=== PATIENT | male | born 1965 ===

== ENCOUNTER 2024-04-02 16:30 | Emergency (ER) | payer OTHER ==
[2024-04-02 18:06] LABS: BASOPHILS ABSOLUTE AUTO 0.04 K/uL (0.00-0.10); BASOPHILS PERCENT AUTO 0.5 % (0.1-1.3); EOSINOPHILS ABSOLUTE AUTO 0.15 K/uL (0.00-0.40); EOSINOPHILS PERCENT AUTO 1.9 % (0.0-5.4); HEMOGLOBIN 14.3 g/dL (12.9-16.9); IMMATURE GRAN PERCENT AUTO 0.3 % (0.0-0.7); LYMPHOCYTES ABSOLUTE AUTO 2.61 K/uL (0.8-3.3); LYMPHOCYTES PERCENT AUTO 33.7 % (11.4-47.7); MEAN CORPUSCULAR HGB CONC 34.9 g/dL (31.6-35.5); MEAN CORPUSCULAR VOLUME 88.7 fL (81.4-99.0); MONOCYTES ABSOLUTE AUTO 0.58 K/uL (0.20-0.90); MONOCYTES PERCENT AUTO 7.5 % (3.3-12.6); NEUTROPHILS ABSOLUTE AUTO 4.34 K/uL (1.0-7.6); NEUTROPHILS PERCENT AUTO 56.1 % (40.0-78.1); PLATELET COUNT,PLT 249 K/uL (130-375); RED BLOOD CELL COUNT 4.62 M/uL (4.14-5.76); WHITE BLOOD CELL COUNT,WBC 7.7 K/uL (3.2-11.0)
[2024-04-02 18:07] LABS: IMMATURE GRAN ABSOLUTE AUTO 0.02 K/uL (0.00-0.23)
[2024-04-02 18:25] LABS: ANION GAP 11.5 mmol/L (5.0-14.0); CALCIUM 9.2 mg/dL (8.5-10.1); CREATININE 1.2 mg/dL (0.8-1.3); EST CRCL DRUG DOSING (CG) 60.44 mL/min; POTASSIUM,K 4.5 mmol/L (3.6-5.2)
[2024-04-02] MEDS ORDERED: Glucagon,Human Recombinant 1 MG Vial IM PRN (18:33)
[2024-04-02] MEDS ORDERED: 50% Dextrose in Water 50 ML Syringe IVPUSH PRN (18:33)
[2024-04-02] MEDS: Insulin Regular, Human 100 Units/ML 3 ML Vial SUBCUT ONE (19:10)
== END 2024-04-02 21:47 | disposition home or self-care (01) ==
LOC: JP.ED 16:30
DX: S92.515D Nondisplaced fracture of proximal phalanx of left lesser toe(s), subsequent encounter for fracture with routine healing (principal); I10 Essential (primary) hypertension; K21.9 Gastro-esophageal reflux disease without esophagitis; E66.9 Obesity, unspecified; E11.9 Type 2 diabetes mellitus without complications; Z91.010 Allergy to peanuts; Z88.8 Allergy status to other drugs, medicaments and biological substances; Z79.82 Long term (current) use of aspirin; Z79.899 Other long term (current) drug therapy; Z86.16 Personal history of COVID-19; Z68.41 Body mass index [BMI] 40.0-44.9, adult; X58.XXXD Exposure to other specified factors, subsequent encounter
CPT/HCPCS: 36415; 73700-LT; 76377; 80048; 82947; 85025; 99283; J1815-GY